=== PATIENT | male | born 1945 | race Caucasian/White ===

== ENCOUNTER 2019-03-14 07:06 | Outpatient (RCR) | payer OTHER, SELFPAY | END 2019-04-06 23:59 | disposition home or self-care (01) | LOC: PULRHB 07:06 | PROVIDERS: Family Provider Family Medicine; Visit Provider Internal Medicine Pulmonary Disease | DX: J44.9 Chronic obstructive pulmonary disease, unspecified (principal) ==

== ENCOUNTER 2019-04-10 12:53 | Outpatient (RCR) | payer OTHER, SELFPAY | END 2019-05-05 23:59 | disposition home or self-care (01) | LOC: PULRHB 12:53 | PROVIDERS: Family Provider Family Medicine; Visit Provider Internal Medicine Pulmonary Disease | DX: J44.9 Chronic obstructive pulmonary disease, unspecified (principal) | CPT/HCPCS: G0424 ==

== ENCOUNTER 2019-05-06 06:00 | Outpatient (RCR) | payer OTHER, SELFPAY | END 2019-06-05 23:59 | disposition home or self-care (01) | LOC: PULRHB 06:00 | PROVIDERS: Family Provider Family Medicine; Visit Provider Internal Medicine Pulmonary Disease | DX: J44.9 Chronic obstructive pulmonary disease, unspecified (principal) | CPT/HCPCS: G0424 ==

== ENCOUNTER 2019-08-06 06:00 | Outpatient (RCR) | payer OTHER, SELFPAY | END 2019-09-04 23:59 | disposition home or self-care (01) | LOC: PULRHB 06:00 | PROVIDERS: PCP Family Medicine; Visit Provider Internal Medicine Pulmonary Disease | DX: J44.9 Chronic obstructive pulmonary disease, unspecified (principal) | CPT/HCPCS: G0424 ==

== ENCOUNTER 2019-09-05 06:00 | Outpatient (RCR) | payer OTHER, SELFPAY | END 2019-10-05 23:59 | disposition home or self-care (01) | LOC: PULRHB 06:00 | PROVIDERS: PCP Family Medicine; Visit Provider Internal Medicine Pulmonary Disease | DX: J44.9 Chronic obstructive pulmonary disease, unspecified (principal) | CPT/HCPCS: 94010; G0424 ==

== ENCOUNTER 2020-11-05 06:00 | Outpatient (RCR) | payer OTHER, MEDICARE, SELFPAY | END 2020-12-04 23:59 | disposition home or self-care (01) | LOC: PULRHB 06:00 | PROVIDERS: PCP Family Medicine; Visit Provider Internal Medicine Pulmonary Disease | DX: J44.9 Chronic obstructive pulmonary disease, unspecified (principal) ==

== ENCOUNTER 2023-04-06 08:39 | Outpatient (CLI) | payer OTHER, SELFPAY ==
[2023-04-06 09:01] VITALS: PULSE 76; RESP 18; O2SAT 98
[2023-04-06] MEDS: albuterol 2.5 mg/3 mL Neb INHALATION (09:01)
[2023-04-06 09:05] VITALS: PULSE 77
--- NOTE | 2023-04-06 09:26 | XRR_ITS ---
PROCEDURE INFORMATION: Exam: XR Chest Exam date and time: 04/06/2023 9:33 AM Age: 77 years old Clinical indication: Condition or disease; Lung condition and disease; Copd TECHNIQUE: Imaging protocol: Radiologic exam of the chest. Views: 2 views. COMPARISON: No relevant prior studies available. FINDINGS: Lungs: Both lungs demonstrate chronic interstitial coarsening. No lung mass or infiltrate. Pleural spaces: There are multiple calcified pleural plaques bilaterally. Heart/Mediastinum: Unremarkable. No cardiomegaly. Bones/joints: Unremarkable. XR/XR chest 2V* [id number] IMPRESSION: I see no acute abnormality. Chronic lung and pleural changes noted
== END 2023-04-06 08:40 | disposition home or self-care (01) ==
LOC: RT 08:39
PROVIDERS: PCP Family Medicine; Visit Provider Chiropractor
DX: J44.9 Chronic obstructive pulmonary disease, unspecified (principal); R94.2 Abnormal results of pulmonary function studies
CPT/HCPCS: 71046; 94060; J7613

== ENCOUNTER 2023-12-15 11:41 | Outpatient (CLI) | payer OTHER, SELFPAY | END 2023-12-15 11:42 | disposition home or self-care (01) | LOC: LAB 11:41 | PROVIDERS: PCP Family Medicine; Visit Provider Nurse Practitioner Family | DX: R97.20 Elevated prostate specific antigen [PSA] (principal) | CPT/HCPCS: 84153 ==

== ENCOUNTER → 2023-12-21 09:53 | Outpatient (BNVA) | payer OTHER, SELFPAY | PROVIDERS: PCP Family Medicine; Referring Provider Family Medicine; Visit Provider Nurse Practitioner Family | DX: L57.0 Actinic keratosis (principal); L72.0 Epidermal cyst; D22.4 Melanocytic nevi of scalp and neck; L81.4 Other melanin hyperpigmentation | CPT/HCPCS: 17000; 99203 ==

== ENCOUNTER 2024-02-07 10:47 | Outpatient (CLI) | payer OTHER, SELFPAY | END 2024-02-07 10:48 | disposition home or self-care (01) | LOC: LAB 10:51 | PROVIDERS: PCP Family Medicine; Visit Provider Nurse Practitioner Family | DX: R97.20 Elevated prostate specific antigen [PSA] (principal) | CPT/HCPCS: 36415; 84153 ==

== ENCOUNTER → 2024-12-20 10:15 | Outpatient (BNVA) | payer OTHER, SELFPAY | PROVIDERS: PCP Family Medicine; Visit Provider Nurse Practitioner Family | DX: L57.8 Other skin changes due to chronic exposure to nonionizing radiation (principal); L81.4 Other melanin hyperpigmentation; D18.01 Hemangioma of skin and subcutaneous tissue; L57.0 Actinic keratosis | CPT/HCPCS: 17000; 99213 ==

== ENCOUNTER → 2024-12-25 09:54 | Outpatient (BNVA) | payer OTHER, SELFPAY | PROVIDERS: PCP Family Medicine; Referring Provider Family Medicine; Visit Provider Specialist | DX: R20.2 Paresthesia of skin (principal) | CPT/HCPCS: 95911 ==